=== PATIENT | male | born 1965 | race Caucasian/White ===

== ENCOUNTER 2018-02-01 09:41 | Emergency (ER) | payer OTHER ==
[~2018-02-01] VITALS: Ht 185.4 cm; Wt 79.5 kg
[2018-02-01 10:11] VITALS: Ht 185.4 cm; Wt 79.5 kg
[2018-02-01] MEDS ORDERED: EXCEDRIN CAPLET1 TAB PO (10:13)
[2018-02-01] MEDS ORDERED: ACETAMINOPHEN500 M1 (10:13)
[2018-02-01] MEDS ORDERED: TYLENOL PM1 TAB PO (10:14)
[2018-02-01 10:50] LABS: BASOPHILS 0.5 % (0-2); EOSINOPHILS 2.8 % (0-7); HEMATOCRIT 53.8 % (42.0-54.0); HEMOGLOBIN 18.8 g/dL (13.5-17.5); IMMATURE GRANULOCYTES 0.4 % (0-5); LYMPHOCYTES 38.6 % (15-50); MCH 31.8 pg (26.0-34.0); MCHC 34.9 g/dL (31.0-37.0); MCV 90.9 fL (80.0-100.0); MEAN PLATELET VOLUME 10.2 fL (7.4-10.4); MONOCYTES 7.3 % (2-11); NEUTROPHILS 50.4 % (40-80); PLATELET COUNT 231 10x3/uL (130-400); RBC 5.92 10x6/uL (4.20-6.10); RDW 14.8 % (11.5-14.5); WBC 11.3 10x3/uL (4.8-10.8)
[2018-02-01 11:06] LABS: ALBUMIN 3.7 g/dL (3.4-5.0); ALKALINE PHOSPHATASE 52 U/L (46-116); ALT (SGPT) 156 U/L (10-68); BILIRUBIN - TOTAL 0.38 mg/dL (0.2-1.3); CALC OSMOLALITY 274 mosm/kg (275-300); CARBON DIOXIDE 27.1 mmol/L (21.0-32.0); CHLORIDE - SERUM 103 mmol/L (98-107); GLUCOSE 102 mg/dL (74-106); POTASSIUM - SERUM 3.9 mmol/L (3.5-5.1); SODIUM 138 mmol/L (136-145); UREA NITROGEN 11 mg/dL (7-18); eGFR NON AFRICAN AMERICAN 84 mL/min (90-120)
[2018-02-01 11:09] LABS: APPEARANCE CLEAR (CLEAR); BILIRUBIN NEGATIVE (NEGATIVE); COLOR YELLOW (YELLOW); GLUCOSE NEGATIVE (NEGATIVE); KETONE NEGATIVE (NEGATIVE); NITRITE NEGATIVE (NEGATIVE); PROTEIN NEGATIVE (NEGATIVE); UROBILINOGEN NORMAL (NORMAL)
[2018-02-01 11:17] LABS: UDS - AMPHET NEGATIVE QUAL (NEGATIVE); UDS - BARB NEGATIVE QUAL (NEGATIVE); UDS - BENZO NEGATIVE QUAL (NEGATIVE); UDS - COCAINE NEGATIVE QUAL (NEGATIVE); UDS - OPIATE NEGATIVE QUAL (NEGATIVE); UDS - PCP NEGATIVE QUAL (NEGATIVE); UDS - THC NEGATIVE QUAL (NEGATIVE)
[2018-02-01] MEDS ORDERED: AMBIEN10 MG PO (11:36)
[2018-02-01] MEDS ORDERED: DILANTIN100 MG PO (11:36)
[2018-02-01] MEDS ORDERED: TOPAMAX100 MG PO (11:36)
[2018-02-01 12:43] VITALS: BP 146/78
== END 2018-02-01 13:01 | disposition home or self-care (01) ==
LOC: D.ER 09:41
PROVIDERS: Emergency Medicine
DX: G40.109 Localization-related (focal) (partial) symptomatic epilepsy and epileptic syndromes with simple partial seizures, not intractable, without status epilepticus (principal); Z91.14 Patient's other noncompliance with medication regimen; F17.200 Nicotine dependence, unspecified, uncomplicated

== ENCOUNTER 2018-02-06 15:57 | Emergency (ER) | payer OTHER ==
[2018-02-01 10:11] VITALS: BMI 23.1
[~2018-02-06 15:57] MED LIST: ACETAMINOPHEN500 M1; AMBIEN10 MG PO; DILANTIN100 MG PO; EXCEDRIN CAPLET1 TAB PO; TOPAMAX100 MG PO; TYLENOL PM1 TAB PO
[2018-02-07] MEDS ORDERED: KEPPRA XR750 MG PO (00:44)
== END 2018-02-06 16:31 | disposition home or self-care (01) ==
LOC: D.ER 15:57
DX: G40.109 Localization-related (focal) (partial) symptomatic epilepsy and epileptic syndromes with simple partial seizures, not intractable, without status epilepticus (principal); Z91.14 Patient's other noncompliance with medication regimen; F17.200 Nicotine dependence, unspecified, uncomplicated

== ENCOUNTER 2018-02-06 20:56 | Emergency (ER) | payer OTHER ==
[~2018-02-06] VITALS: Ht 185.4 cm; Wt 74.5 kg
[2018-02-06 21:14] VITALS: BP 129/83; Ht 185.4 cm; Wt 74.5 kg
[2018-02-06 21:57] LABS: BASOPHILS 0.9 % (0-2); EOSINOPHILS 3.6 % (0-7); HEMATOCRIT 51.6 % (42.0-54.0); HEMOGLOBIN 17.9 g/dL (13.5-17.5); IMMATURE GRANULOCYTES 0.8 % (0-5); LYMPHOCYTES 43.7 % (15-50); MCH 31.5 pg (26.0-34.0); MCHC 34.7 g/dL (31.0-37.0); MCV 90.8 fL (80.0-100.0); MEAN PLATELET VOLUME 9.7 fL (7.4-10.4); MONOCYTES 9.2 % (2-11); NEUTROPHILS 41.8 % (40-80); PLATELET COUNT 245 10x3/uL (130-400); RBC 5.68 10x6/uL (4.20-6.10); RDW 14.5 % (11.5-14.5); WBC 9.3 10x3/uL (4.8-10.8)
[2018-02-06 22:14] LABS: ALBUMIN 3.6 g/dL (3.4-5.0); ALKALINE PHOSPHATASE 55 U/L (46-116); ALT (SGPT) 119 U/L (10-68); BILIRUBIN - TOTAL 0.28 mg/dL (0.2-1.3); CALC OSMOLALITY 281 mosm/kg (275-300); CALCIUM 8.8 mg/dL (8.5-10.1); CARBON DIOXIDE 29.8 mmol/L (21.0-32.0); CHLORIDE - SERUM 105 mmol/L (98-107); CREATININE - SERUM 0.9 mg/dL (0.6-1.3); GLUCOSE 96 mg/dL (74-106); POTASSIUM - SERUM 3.6 mmol/L (3.5-5.1); PROTEIN - SERUM 7.7 g/dL (6.4-8.2); SODIUM 141 mmol/L (136-145); UREA NITROGEN 14 mg/dL (7-18); eGFR NON AFRICAN AMERICAN > 90 mL/min (90-120)
[2018-02-07] MEDS ORDERED: KEPPRA XR750 MG PO (00:44)
== END 2018-02-07 01:25 | disposition home or self-care (01) ==
LOC: D.ER 20:56
PROVIDERS: Family Medicine
DX: G40.109 Localization-related (focal) (partial) symptomatic epilepsy and epileptic syndromes with simple partial seizures, not intractable, without status epilepticus (principal); Z91.14 Patient's other noncompliance with medication regimen; F17.200 Nicotine dependence, unspecified, uncomplicated